=== PATIENT | female | born 1960 | race Caucasian/White ===

== ENCOUNTER 2016-06-30 04:53 | Day surgery (SDC) | payer MEDICARE, OTHER ==
[~2016-06-30 04:53] MED LIST: AMIT25 PO; CRESTOR40 MG PO; DIL2TAB PO; MOBIC15 MG PO; MSCONTIN PO; NORCO1 TAB PO; NOVLOGPUMP SC; PROAIR HFA INH; RANITIDINE300 MG PO; SYMBICORT 160/41 INH INH; TESS PO; TOPAMAX50 MG PO; V5 PO; VALIUM10 MG PO; X5 PO; XANAX1 MG PO; ZANAFLEX 4 MG TA4 MG PO; ZOL100 PO; ZOL50 PO; ZYRTEC ALLGY10 MG PO
[2016-08-11] MEDS ORDERED: MOTRIN IB200 MG PO (11:34)
== END 2016-06-30 16:05 | disposition home or self-care (01) ==
LOC: SDC 04:53
PROVIDERS: Orthopaedic Surgery
PROC: B01BZZZ Fluoroscopy of Spinal Cord (ICD-10-PCS; 2016-06-30)
PROC: 3E0R3BZ Introduction of Anesthetic Agent into Spinal Canal, Percutaneous Approach (ICD-10-PCS; principal; 2016-06-30 07:45)
DX: M54.16 Radiculopathy, lumbar region (principal); E11.9 Type 2 diabetes mellitus without complications; E78.00 Pure hypercholesterolemia, unspecified; J45.909 Unspecified asthma, uncomplicated; M81.0 Age-related osteoporosis without current pathological fracture; M19.90 Unspecified osteoarthritis, unspecified site; K21.9 Gastro-esophageal reflux disease without esophagitis; Z90.49 Acquired absence of other specified parts of digestive tract; Z90.710 Acquired absence of both cervix and uterus; F32.9 Major depressive disorder, single episode, unspecified; Z98.890 Other specified postprocedural states
CPT/HCPCS: 82962; J1040; J2250; J3010

== ENCOUNTER 2016-08-13 05:03 | Day surgery (SDC) | payer MEDICARE, OTHER ==
[~2016-08-13 05:03] MED LIST changes: +MOTRIN IB200 MG PO
== END 2016-08-13 08:31 | disposition home or self-care (01) ==
LOC: SDC 05:03
PROVIDERS: Orthopaedic Surgery
PROC: 3E0S3BZ Introduction of Anesthetic Agent into Epidural Space, Percutaneous Approach (ICD-10-PCS; 2016-08-13)
PROC: 3E0S33Z Introduction of Anti-inflammatory into Epidural Space, Percutaneous Approach (ICD-10-PCS; principal; 2016-08-13 08:00)
DX: M54.16 Radiculopathy, lumbar region (principal); M54.5 Low back pain; E83.119 Hemochromatosis, unspecified; D72.829 Elevated white blood cell count, unspecified; D45 Polycythemia vera; F32.9 Major depressive disorder, single episode, unspecified; E11.9 Type 2 diabetes mellitus without complications; E78.00 Pure hypercholesterolemia, unspecified; K21.9 Gastro-esophageal reflux disease without esophagitis; K64.9 Unspecified hemorrhoids; M19.90 Unspecified osteoarthritis, unspecified site; J45.909 Unspecified asthma, uncomplicated; F17.210 Nicotine dependence, cigarettes, uncomplicated; Z95.5 Presence of coronary angioplasty implant and graft; Z90.710 Acquired absence of both cervix and uterus; Z98.890 Other specified postprocedural states; Z96.41 Presence of insulin pump (external) (internal); Z98.1 Arthrodesis status; Z90.49 Acquired absence of other specified parts of digestive tract; Z88.5 Allergy status to narcotic agent; Z88.8 Allergy status to other drugs, medicaments and biological substances; Z79.4 Long term (current) use of insulin; Z79.899 Other long term (current) drug therapy; Z79.891 Long term (current) use of opiate analgesic
CPT/HCPCS: 82962; J1040; J2250; J3010; Q9967